=== PATIENT | female | born 1965 | race African-American/Black ===

== ENCOUNTER → 2016-09-15 | Outpatient (CLI) | payer BC ==
--- NOTE | 2016-09-19 07:24 | MM ---
Reason for exam: screening (asymptomatic). Last mammogram was performed 1 year and 2 months ago. History: Family history of breast cancer in maternal cousin and breast cancer in maternal aunt. Took hormonal contraceptives for 10 years beginning at age 21. Physical Findings: A clinical breast exam by your physician is recommended on an annual basis and results should be correlated with mammographic findings. MG Screening Mammo w CAD Bilateral CC and MLO view(s) were taken. Prior study comparison: July 20, 2015, bilateral MG screening mammo w CAD. July 16, 2014, bilateral MG screening mammo w CAD. May 21, 2013, bilateral digital screening mammo w/CAD. There are scattered fibroglandular densities. There is no discrete abnormality. ASSESSMENT: Negative, BI-RAD 1 RECOMMENDATION: Routine screening mammogram of both breasts in 1 year.
== END | disposition home or self-care (01) ==
LOC: RADMAMWWP 09:25
PROVIDERS: ATTEND Obstetrics & Gynecology
DX: Z12.31 Encounter for screening mammogram for malignant neoplasm of breast (principal)

== ENCOUNTER → 2017-10-10 | Outpatient (CLI) | payer BC ==
--- NOTE | 2017-10-12 09:55 | MM ---
Reason for exam: screening (asymptomatic). Last mammogram was performed 1 year and 1 month ago. History: Family history of breast cancer in maternal cousin and breast cancer in maternal aunt. Took hormonal contraceptives for 10 years beginning at age 21. Physical Findings: A clinical breast exam by your physician is recommended on an annual basis and results should be correlated with mammographic findings. MG Screening Mammo w CAD Bilateral CC and MLO view(s) were taken. Prior study comparison: September 15, 2016, bilateral MG screening mammo w CAD. July 20, 2015, bilateral MG screening mammo w CAD. There are scattered fibroglandular densities. No significant changes when compared with prior studies. ASSESSMENT: Benign, BI-RAD 2 RECOMMENDATION: Routine screening mammogram of both breasts in 1 year.
== END | disposition home or self-care (01) ==
LOC: RADMAMWWP 08:45
PROVIDERS: ATTEND Obstetrics & Gynecology
DX: Z12.31 Encounter for screening mammogram for malignant neoplasm of breast (principal)
CPT/HCPCS: 77067

== ENCOUNTER → 2018-04-02 | Outpatient (CLI) | payer BC ==
[2018-04-02 10:50] LABS: Basophils % (A) 1 %; Eosinophils # (A) 0.1 k/uL (0-0.7); Eosinophils % (A) 2 %; HCT 38.2 % (34.0-46.0); HGB 12.3 gm/dL (11.4-16.0); Hypochromasia Slight; Lymphocytes # (A) 1.6 k/uL (1.0-4.8); Lymphocytes % (A) 33 %; MCH 27.9 pg (25.0-35.0); MCHC 32.1 g/dL (31.0-37.0); MCV 86.9 fL (80.0-100.0); Mean Platelet Volume 8.7; Monocytes # (A) 0.3 k/uL (0-1.0); Monocytes % (A) 5 %; Neutrophils # (A) 2.8 k/uL (1.3-7.7); Neutrophils % (A) 57 %; Platelet Count 237 k/uL (150-450); RBC 4.39 m/uL (3.80-5.40); RDW 15.2 % (11.5-15.5)
[2018-04-02 11:11] LABS: Potassium 3.8 mmol/L (3.5-5.1)
== END | disposition home or self-care (01) ==
LOC: LABPAT 09:54
PROVIDERS: ATTEND Obstetrics & Gynecology
DX: Z01.818 Encounter for other preprocedural examination (principal); Z01.812 Encounter for preprocedural laboratory examination; N81.10 Cystocele, unspecified; I10 Essential (primary) hypertension; E11.9 Type 2 diabetes mellitus without complications
CPT/HCPCS: 36415; 80051; 82565; 82947; 84520; 85025; 87086; 93005

== ENCOUNTER 2018-04-09 05:46 | Observation (INO) | payer BC ==
[~2018-04-09 05:46] MED LIST: DEXAMETHASONE SOD PHOSPHATE 10 MG/ML 1 ML VIAL IV ONE; HYDROmorphone 0.5 MG/0.5 ML SYRINGE IVP PRN; LIDOCAINE 1% 20 ML VIAL (10MG/ML) FOR IV START INTRADERMA PRN; ONDANSETRON 4 MG/2 ML VIAL IVP ONE; SCOPOLAMINE 1.5MG/72HR PATCH TRANSDERM ONE
[2018-04-09] MEDS ORDERED: LACTATED RINGERS 1,000 ML IV ONE (06:28)
[2018-04-09 06:35] LABS: Glucose,Whole Blood 143 mg/dL (75-99)
[2018-04-09] MEDS ORDERED: MIDAZOLAM 2 MG/2 ML VIAL IVP ONE (06:57)
[2018-04-09] MEDS ORDERED: ceFAZolin IN SWFI 2 GM/20 ML SYRINGE IVP ONE (07:00)
[2018-04-09] MEDS ORDERED: KETOROLAC 30 MG/ML 1 ML VIAL ONE (07:28)
[2018-04-09] MEDS ORDERED: fentaNYL (PF) 50 MCG/ML 2 ML AMP ONE (07:28)
[2018-04-09] MEDS ORDERED: MIDAZOLAM 2 MG/2 ML VIAL ONE (07:28)
[2018-04-09] MEDS ORDERED: LIDOCAINE 1% INJ 10MG/ML (20 ML MDV) ONE (07:28)
[2018-04-09] MEDS ORDERED: HYDROmorphone (PF) 1 MG/ML ONE (07:28)
[2018-04-09] MEDS ORDERED: PROPOFOL 10 MG/ML 20 ML VIAL IV ONE (07:28)
[2018-04-09] MEDS ORDERED: SUCCINYLCHOLINE CHLORIDE 100 MG/5 ML SYR IV ONE (07:28)
[2018-04-09] MEDS ORDERED: VASOPRESSIN 20 UNIT/ML 1 ML VIAL SQ ONE (07:45)
[2018-04-09] MEDS ORDERED: BACITRACIN 500 UNIT/GM OINT 28.4 GM TUBE TOPICAL ONE (07:57)
[2018-04-09] MEDS ORDERED: diphenhydrAMINE 50 MG/ML 1 ML VIAL IVP PRN (08:41)
[2018-04-09] MEDS ORDERED: ONDANSETRON 4 MG/2 ML VIAL IVP PRN (08:41)
[2018-04-09] MEDS ORDERED: SIMETHICONE 80 MG CHEWABLE PO PRN (08:41)
[2018-04-09] MEDS ORDERED: METOCLOPRAMIDE 5 MG/ML 2 ML VIAL IVP PRN (08:41)
[2018-04-09] MEDS ORDERED: Acetaminophen-Codeine 300-30mg TAB PO PRN ×2 (08:41)
[2018-04-09] MEDS ORDERED: IBUPROFEN 600 MG TAB PO PRN (08:41)
--- NOTE | 2018-04-09 08:52 | P.OP ---
Date of Procedure: 04/09/18 Preoperative Diagnosis: #1. Symptomatic cystocele #2. Symptomatic uterine prolapse Postoperative Diagnosis: Same Procedure(s) Performed: 1. Vaginal hysterectomy #2. Anterior colporrhaphy Anesthesia: JAMES Surgeon: Rajiv Downing Insulation Worker #1: Jania Chen Estimated Blood Loss (ml): 125 IV fluids (ml): 700 Urine output (ml): 300 Pathology: other (Uterus with cervix) Condition: stable Disposition: PACU Operative Findings: Preoperative pelvic examination confirmed adequate uterine descensus under anesthesia to proceed with hysterectomy. There was grade 2+ uterine prolapse and grade 3 cystocele present. The bilateral tubes and ovaries appeared and felt normal. There were a number of small paratubal cysts primarily on the right side which were left in place so as not to cause bleeding. Description of Procedure: The patient was prepped and draped in usual fashion after general endotracheal anesthesia was administered by the anesthesiologist. A weighted speculum was placed and the bladder drained of approximately 200 mL of clear brien urine. The cervix was grasped with a double-tooth tenaculum and the cervical vaginal mucosa infused with diluted vasopressin solution. The cervicovaginal mucosa was incised circumferentially and reflected distally both sharply and bluntly. The posterior peritoneum was identified and incised sharply with the Steel scissors and then tagged with a stitch of 2-0 Vicryl for later use. The short weighted speculum was replaced with a long weighted speculum and further blunt dissection carried out on the mucosa. The uterosacral ligaments on each side were clamped with curved Melody-Almont clamps, cut, and suture-ligated with a transfixion stitch of 0 Vicryl. Serial bites were taken up the cardinal ligament towards the utero-ovarian ligament on each side using curved Melody- Almont clamps. Each was cut and then suture-ligated with a transfixion stitch of 0 Vicryl. After several bites on each side and securing the vasculature laterally, the uterus was inverted posteriorly allowing identification of the anterior peritoneum which was incised sharply. This isolated the utero-ovarian ligament on each side which was clamped with a curved Melody-Almont clamp, cut, and suture-ligated with a transfixion stitch of 0 Vicryl followed by a free tie of 0 Vicryl. Some bleeding on the right ovary was noted and was made hemostatic both with the Bovie and with a [id number]-ar-[id number] stitch of 0 Vicryl. The findings otherwise with the tubes and ovaries were entirely normal. The long weighted speculum was replaced the short weighted speculum and the previously placed stitch of 2-0 Vicryl was used to close the parietal peritoneum in the pursestring stitch. The uterosacral stitches were placed through the contralateral uterosacral and vaginal mucosa with 0 Vicryl and then tied together in a modified Santos's culdoplasty. The intervening open vagina was closed posterior to the uterosacrals with interrupted [id number] stitches of 0 Vicryl. The anterior space was closed with a single stitch and left open at its apex where Allis clamps were affixed to the edges. The vesicovaginal mucosa was then infused with diluted vasopressin solution in the midline from the vaginal incision to the urethral apex. It was then undermined with Metzenbaum scissors in the midline and divided placing Allis clamps along the margins. The mucosa was then bluntly and sharply dissected from the underlying bladder. Once adequate dissection had been carried out, Dhillon catheter was placed demonstrating clear fluid. Approximately 100 mL of clear brien urine was released. Serial Mary plication stitches were placed starting at the urethral apex using 2-0 PDS and continuing to the top of the vaginal closure. The intervening redundant vaginal mucosa was trimmed with Metzenbaum scissors and discarded. The vaginal mucosa was then closed with a running locking stitch of 2-0 Vicryl from the urethral apex to the apex of the vaginal hysterectomy incision. The Dhillon catheter was noted to be free and draining clear brien urine. The vagina was packed with one-inch iodophor gauze covered with bacitracin ointment. All sponge, instrument, and needle counts were correct. There were no complications. Estimated blood loss for the case was approximately 125 mL. The patient tolerated the procedure well and proceeded to the recovery room in stable condition.
[2018-04-09] MEDS: ACETAMINOPHEN IV (For NPO) 1,000 MG in EMPTY BAG 1 BAG IVPB PRN ×2 (09:45→10:00)
[2018-04-09] MEDS: LACTATED RINGERS 1,000 ML IV SCH ×2 (10:59→20:19)
[2018-04-09] MEDS: SENNOSIDES-DOCUSATE SODIUM 1 EACH TAB PO SCH ×2 (10:59→20:48)
[2018-04-09 11:03] VITALS: BMI 34.4
[2018-04-09] MEDS: HYDROmorphone 1 MG/ML 1 ML SYRINGE IVP PRN ×2 (12:49→16:33)
[2018-04-09 14:21] LABS: Glucose,Whole Blood 150 mg/dL (75-99)
[2018-04-09] MEDS: KETOROLAC 30 MG/ML 1 ML VIAL IVP PRN ×2 (14:52→20:48)
[2018-04-09 17:04] LABS: Glucose,Whole Blood 163 mg/dL (75-99)
[2018-04-09] MEDS: INSULIN ASPART (NovoLOG) 100 UNIT/ML VIAL SQ SCH ×2 (17:30→20:46)
[2018-04-09] MEDS: GLIMEPIRIDE 2 MG TAB PO SCH (18:31)
[2018-04-09 20:33] LABS: Glucose,Whole Blood 173 mg/dL (75-99)
[2018-04-09] MEDS: LOSARTAN-HCTZ 50-12.5 MG 1 EACH TAB PO SCH (20:48)
[2018-04-10] MEDS: KETOROLAC 30 MG/ML 1 ML VIAL IVP PRN (04:17)
[2018-04-10] MEDS: LACTATED RINGERS 1,000 ML IV SCH (04:18)
[2018-04-10 06:51] LABS: Glucose,Whole Blood 89 mg/dL (75-99)
[2018-04-10] MEDS: INSULIN ASPART (NovoLOG) 100 UNIT/ML VIAL SQ SCH ×2 (06:52→13:03)
[2018-04-10 07:33] LABS: Basophils % (A) 0 %; Eosinophils % (A) 0 %; HCT 35.2 % (34.0-46.0); HGB 10.9 gm/dL (11.4-16.0); Lymphocytes # (A) 1.7 k/uL (1.0-4.8); Lymphocytes % (A) 16 %; MCH 27.1 pg (25.0-35.0); MCV 87.5 fL (80.0-100.0); Mean Platelet Volume 10.2; Monocytes # (A) 0.7 k/uL (0-1.0); Monocytes % (A) 7 %; Neutrophils # (A) 8.4 k/uL (1.3-7.7); Neutrophils % (A) 76 %; Platelet Count 198 k/uL (150-450); RBC 4.02 m/uL (3.80-5.40); RDW 15.4 % (11.5-15.5)
[2018-04-10] MEDS: GLIMEPIRIDE 2 MG TAB PO SCH (07:57)
[2018-04-10] MEDS ORDERED: ACETAMINOPHEN TAB 325 MG TAB PO PRN (08:43)
--- NOTE | 2018-04-10 08:58 | P.DS ---
Providers Date of admission: 04/09/18 21:18 Expected date of discharge: 04/10/18 Attending physician: Rajiv Downing Primary care physician: Chantel Morgan - Discharge Diagnosis(es) (1) Cystocele Current Visit: Yes Status: Acute (2) Uterine prolapse Current Visit: Yes Status: Acute Hospital Course: Patient is a 52-year-old 4 para 3 who is status post 3 vaginal deliveries in the past who presented the office with complaints of increasing symptoms of prolapse. Examination in the office demonstrated a grade 3 cystocele present with uncertain prolapse of the uterus without anesthetic. She was counseled regarding the likelihood of vaginal instructed me with anterior repair assuming there was adequate uterine descensus. In the operating room, the patient was found to have adequate uterine descensus under anesthesia and underwent a vaginal instructed he with anterior colporrhaphy and an uncomplicated fashion. Her postoperative course has been entirely uncomplicated with vital signs remained stable and her temperature was afebrile throughout. She was tolerating regular diet by the morning of postoperative day #1 and was able to adequately void with minimal post void residual as measured by uroscan. She was deemed stable for discharge on postoperative day # 1 was discharged home to follow-up in the office in 2 weeks for recheck and 6 weeks routinely. Discharge instructions included calling for any significantly increased bleeding, fever, bladder concerns, GI concerns, abdominal pain, fever , or anything else that concerned her. She was additionally instructed to have nothing in the vagina for at least 6 weeks time to include intercourse. She was lastly and most importantly instructed to do no heavy lifting over the course of the next 6 weeks. She understood all of her instructions and agrees follow up as noted above. Discharge medications included continuation of her home medications aside from the iron which she will forgo in order to decrease the risk for constipation. She was provided with a prescription for Tylenol No. 3, 1-2 by mouth every 6 hours when necessary pain, #20 dispensed with no refills. She will use these only as needed and anticipate using over-the- counter analgesic pain medications more regularly. Discharge hemoglobin and hematocrit were 10.9 and 35.2 respectively. Procedures: #1. Vaginal instructed he #2. Anterior colporrhaphy Patient Condition at Discharge: Good Plan - Discharge Summary Discharge Rx Participant: No New Discharge Prescriptions: No Action Glimepiride [Amaryl] 2 mg PO BID Aspirin EC [Ecotrin] 81 mg PO DAILY Losartan-Hctz 50-12.5 mg [Hyzaar 50-12.5] 1 each PO BID sitaGLIPtin [Januvia] 100 mg PO DAILY Ascorbic Acid [Vitamin C] 500 mg PO DAILY Folic Acid 1 mg PO DAILY Gardiance 10 mg PO DAILY Cholecalciferol (Vitamin D3) [Vitamin D3] 2,000 unit PO DAILY Ferrous Sulfate [Iron (65 MG Elemental)] 65 mg PO DAILY Discharge Medication List Aspirin EC [Ecotrin] 81 mg PO DAILY 07/10/14 [History] Glimepiride [Amaryl] 2 mg PO BID 07/10/14 [History] Losartan-Hctz 50-12.5 mg [Hyzaar 50-12.5] 1 each PO BID 12/26/15 [History] sitaGLIPtin [Januvia] 100 mg PO DAILY 12/26/15 [History] Ascorbic Acid [Vitamin C] 500 mg PO DAILY 04/01/18 [History] Cholecalciferol (Vitamin D3) [Vitamin D3] 2,000 unit PO DAILY 04/01/18 [History] Folic Acid 1 mg PO DAILY 04/01/18 [History] Gardiance 10 mg PO DAILY 04/01/18 [History] Ferrous Sulfate [Iron (65 MG Elemental)] 65 mg PO DAILY 04/09/18 [History] Follow up Appointment(s)/Referral(s): Rajiv Downing MD [STAFF PHYSICIAN] - 2 Weeks Discharge Disposition: HOME SELF-CARE
[2018-04-10] MEDS ORDERED: LINAGLIPTIN 5 MG TABLET PO SCH (09:00)
[2018-04-10] MEDS: SENNOSIDES-DOCUSATE SODIUM 1 EACH TAB PO SCH (09:20)
[2018-04-10] MEDS: LOSARTAN-HCTZ 50-12.5 MG 1 EACH TAB PO SCH (09:26)
[2018-04-10 12:17] LABS: Glucose,Whole Blood 95 mg/dL (75-99)
[2018-04-10] MEDS ORDERED: IBUPROFEN 600 MG TAB PO STA (12:51)
[2018-04-10 13:29] LABS: Hemoglobin A1C 6.8 % (4.0-6.0)
[2018-04-10 14:50] VITALS: BP 149/91; PULSE 78; RESP 20; TEMP 98.3
== END 2018-04-10 13:55 | disposition home or self-care (01) ==
LOC: OR 05:46 → 6PED 08:47 → OR 21:17 → 6PED 21:18
PROVIDERS: ADMIT Obstetrics & Gynecology; ATTEND Obstetrics & Gynecology
DX: N81.3 Complete uterovaginal prolapse (principal); I10 Essential (primary) hypertension; Z82.49 Family history of ischemic heart disease and other diseases of the circulatory system; Z83.3 Family history of diabetes mellitus; Z80.3 Family history of malignant neoplasm of breast; Z79.84 Long term (current) use of oral hypoglycemic drugs; Z79.82 Long term (current) use of aspirin; Z79.899 Other long term (current) drug therapy; Z98.51 Tubal ligation status
CPT/HCPCS: 58260; 57240; 81025; 86900; 86901; 85025; 86850; 88307; 83036; G0378 ×2; J2250; J1100; J2765; J2405; J2001; J3010; J1885 ×2; J1170; J0131; J0330; J2704; J0690

== ENCOUNTER → 2018-11-12 | Outpatient (CLI) | payer BC ==
--- NOTE | 2018-11-14 10:21 | MM ---
Reason for exam: screening (asymptomatic). Last mammogram was performed 1 year and 1 month ago. History: Family history of breast cancer in maternal cousin and breast cancer in maternal aunt. Took hormonal contraceptives for 10 years beginning at age 21. Physical Findings: A clinical breast exam by your physician is recommended on an annual basis and results should be correlated with mammographic findings. MG Screening Mammo w CAD Bilateral CC and MLO view(s) were taken. Prior study comparison: October 10, 2017, bilateral MG screening mammo w CAD. September 15, 2016, bilateral MG screening mammo w CAD. There are scattered fibroglandular densities. There is chronic nodularity bilaterally. There is no discrete abnormality. ASSESSMENT: Negative, BI-RAD 1 RECOMMENDATION: Routine screening mammogram of both breasts in 1 year.
== END | disposition home or self-care (01) ==
LOC: RADMAMWWP 07:27
PROVIDERS: ATTEND Internal Medicine
DX: Z12.31 Encounter for screening mammogram for malignant neoplasm of breast (principal)
CPT/HCPCS: 77067

== ENCOUNTER → 2019-12-08 | Outpatient (CLI) | payer BC ==
--- NOTE | 2019-12-15 10:35 | MM ---
Reason for exam: screening (asymptomatic). Last mammogram was performed 1 year and 1 month ago. History: Family history of breast cancer in maternal cousin and breast cancer in maternal aunt. Took hormonal contraceptives for 10 years beginning at age 21. Physical Findings: A clinical breast exam by your physician is recommended on an annual basis and results should be correlated with mammographic findings. MG Screening Mammo w CAD Bilateral CC and MLO view(s) were taken. Prior study comparison: November 12, 2018, bilateral MG screening mammo w CAD. October 10, 2017, bilateral MG screening mammo w CAD. There are scattered fibroglandular densities. No significant changes when compared with prior studies. ASSESSMENT: Negative, BI-RAD 1 RECOMMENDATION: Routine screening mammogram of both breasts in 1 year.
== END | disposition home or self-care (01) ==
LOC: RADMAMWWP 13:56
PROVIDERS: ATTEND Obstetrics & Gynecology
DX: Z12.31 Encounter for screening mammogram for malignant neoplasm of breast (principal)
CPT/HCPCS: 77067

== ENCOUNTER → 2019-12-25 | Outpatient (CLI) | payer BC | END | disposition home or self-care (01) | LOC: LABWHC1 12:43 | PROVIDERS: ATTEND Internal Medicine | DX: Z20.828 Contact with and (suspected) exposure to other viral communicable diseases (principal) | CPT/HCPCS: U0003; C9803 ==

== ENCOUNTER → 2020-01-09 | Outpatient (CLI) | payer BC | END | disposition home or self-care (01) | LOC: LABWHC1 12:17 | PROVIDERS: ATTEND Internal Medicine | DX: Z20.828 Contact with and (suspected) exposure to other viral communicable diseases (principal) | CPT/HCPCS: U0003; C9803 ==

== ENCOUNTER → 2020-12-08 | Outpatient (CLI) | payer BC ==
--- NOTE | 2020-12-09 09:44 | MM ---
Reason for exam: screening (asymptomatic). Last mammogram was performed 1 year ago. History: Family history of breast cancer in maternal cousin and breast cancer in maternal aunt. Took hormonal contraceptives for 10 years beginning at age 21. Physical Findings: A clinical breast exam by your physician is recommended on an annual basis and results should be correlated with mammographic findings. MG Screening Mammo w CAD Bilateral CC and MLO view(s) were taken. Prior study comparison: December 08, 2019, bilateral MG screening mammo w CAD. November 12, 2018, bilateral MG screening mammo w CAD. There are scattered fibroglandular densities. There is no discrete abnormality. No significant changes when compared with prior studies. ASSESSMENT: Negative, BI-RAD 1 RECOMMENDATION: Routine screening mammogram of both breasts in 1 year.
== END | disposition home or self-care (01) ==
LOC: RADMAMWWP 07:59
PROVIDERS: ATTEND Obstetrics & Gynecology
DX: Z12.31 Encounter for screening mammogram for malignant neoplasm of breast (principal); Z80.3 Family history of malignant neoplasm of breast
CPT/HCPCS: 77067

== ENCOUNTER → 2021-08-05 | Outpatient (CLI) | payer BC ==
--- NOTE | 2021-08-05 08:37 | BD ---
EXAMINATION TYPE: Axial Bone Density DATE OF EXAM: 08/05/2021 COMPARISON: THIS IS HER BASELINE DEXA STUDY CLINICAL HISTORY: 55 years year old Female. ICD-10 CODE: M810 AGE RELATED OSTEOPOROSIS Height: 63.7 Weight: 191 FRAX RISK QUESTIONS: Current Tobacco Use: CONTACT WITH SMOKING RISK FACTORS HISTORY OF: Surgery to RT WRIST, REMOVAL OF BONE AND CA DEPOSIT Postmenopausal woman: YES, PARTIAL AT 51 YRS OLD, HORMONAL STEVE NOW Hyperparathyroidism: NO Adrenal Insufficiency: NO MEDICATIONS: Additional Medications: JANUVIA, BP MED, STATIN FOR CHOLESTEROL, VIT D3, MULTIVITAMINS AND C Additional History: DIABETIC, HYPERTENSION, CHOLESTEROL EXAM MEASUREMENTS: Bone mineral densitometry was performed using the [employer] System. Bone mineral density as measured about the Lumbar spine is: ----- L1-L4(G/cm2): 1.406 T Score Values are as follows: ----- L1: 2.0 ----- L2: 1.2 ----- L3: 1.8 ----- L4: 2.2 ----- L1-L4: 1.9 Bone mineral density BASELINE STUDY Bone mineral density about the R hip (g/cm2): 1.030 Bone mineral density about the L hip (g/cm2): 1.028 T Score values are as follows: -----R Neck: 0.3 -----L Neck: 0.4 -----R Total: 0.2 -----L Total: 0.2 Bone mineral density BASELINE STUDY FRAX%s: The graph provided illustrates a 1.9% chance for a major osteoporotic fx and a 0.0% chance fo r the hips probability for fx in 10 years time. IMPRESSION: No evidence for osteoporosis or osteopenia. NOTE: T-SCORE=SD OF THE YOUNG ADULT MEAN.
--- NOTE | 2021-08-05 09:40 | CT ---
EXAMINATION TYPE: CT soft tissue neck w con DATE OF EXAM: 08/05/2021 COMPARISON: None HISTORY: 55-year-old female R22.0, Mass/lump under chin, submandibular region TECHNIQUE: Contiguous axial scanning of the soft tissues of the neck performed with IV Contrast, rahul ent injected with 100 mL of Isovue 300. Coronal/sagittal reconstructions performed. CT DLP: 382.4 mGycm Automated exposure control for dose reduction was used. FINDINGS: There appears to be an empty sella with secondary sellar enlargement. Paranasal sinuses and mastoid a ir cells appear clear. Visualized intracranial structures show no gross abnormality. Nasopharynx is clear. Lobulated soft tissue left vallecular space suggesting lingual tonsillar hypertrophy. Otherwise, orop harynx appears clear. Epiglottis and prevertebral soft tissues are satisfactory. Glottic and subglottic structures as well as the tracheal column and visualized upper lungs are clear . There is a 7 mm hypodense nodule within the right lobe of the thyroid gland of questionable clinical significance. Thyroid ultrasound can further evaluate. The bilateral submandibular and parotid glands appear satisfactory. There is a palpable marker placed in the right submental region where a mildly enlarged 1.2 x 1.0 cm lymph node is noted. Consider 4-6 week follow-up ultrasound to reassess. If persistence or enlargemen t, tissue sampling may be considered. No additional cervical lymphadenopathy is seen. Bones: No osseous destructive process. IMPRESSION: PALPABLE MARKER RIGHT SUBMENTAL REGION WITH AN UNDERLYING MILDLY ENLARGED 1.2 X 1.0 CM LYMPH NODE. TH IS MAY BE REACTIVE/POST INFLAMMATORY. CONSIDER A 4-6 WEEK FOLLOW-UP ULTRASOUND TO REASSESS. IF PERSIS TENCE OR ENLARGEMENT OR SUSPICIOUS ULTRASOUND/CLINICAL FEATURES, TISSUE SAMPLING CAN BE CONSIDERED AT THAT TIME.
== END | disposition home or self-care (01) ==
LOC: RADBDWWP 07:09
PROVIDERS: ATTEND Internal Medicine
DX: R59.0 Localized enlarged lymph nodes (principal); Z78.0 Asymptomatic menopausal state
CPT/HCPCS: 77080; 70491; Q9967

== ENCOUNTER 2021-09-14 06:18 | Day surgery (SDC) | payer BC ==
[2021-09-13 12:19] VITALS: BMI 32.5
[~2021-09-14 06:18] MED LIST changes: -DEXAMETHASONE SOD PHOSPHATE 10 MG/ML 1 ML VIAL IV ONE; -HYDROmorphone 0.5 MG/0.5 ML SYRINGE IVP PRN; +LACTATED RINGERS 1,000 ML IV SCH; +LIDOCAINE 1% (10MG/ML) FOR IV START INTRADERMA PRN; -LIDOCAINE 1% 20 ML VIAL (10MG/ML) FOR IV START INTRADERMA PRN; -ONDANSETRON 4 MG/2 ML VIAL IVP ONE; -SCOPOLAMINE 1.5MG/72HR PATCH TRANSDERM ONE
[2021-09-14 06:56] VITALS: RESP 16; TEMP 97.8
[2021-09-14 07:07] LABS: Glucose,Whole Blood 199 mg/dL (70-110)
[2021-09-14] MEDS ORDERED: LACTATED RINGERS 1,000 ML IV ONE (07:09)
[2021-09-14] MEDS ORDERED: LIDOCAINE 2% INJ 20 MG/ML (2 ML VIAL) ONE (07:27)
[2021-09-14] MEDS ORDERED: PROPOFOL 10 MG/ML 20 ML VIAL IV ONE (07:27)
--- NOTE | 2021-09-14 07:46 | P.PCN ---
Date of Procedure: 09/14/21 Procedure(s) Performed: Brief history: Patient is a pleasant 55-year-old female scheduled for an elective upper endoscopy as well as colonoscopy as a part of evaluation of Iron deficiency anemia and prior history of colon polyps Procedure performed: Esophagogastroduodenoscopy with biopsy. Colonoscopy with biopsy Preoperative diagnosis: Iron deficiency anemia History of colon polyps Anesthesia: MAC Procedure: After informed consent was obtained from the patient was brought into the endoscopy unit and IV sedation was administered by anesthesia under continuous monitoring. Initially upper endoscopy was done. The Olympus GF 160 video endoscope was inserted inserted into the mouth and esophagus intubated without any difficulty and was gradually advanced into the stomach and duodenum and carefully examined. The bulb and second part of the duodenum appeared normal. Biopsies were done from the duodenum to rule out celiac disease. The scope was then withdrawn into the stomach adequately insufflated with air and upon careful examination the antrum had minimal antral gastritis and biopsies were done from this area. The body, cardia and fundus appeared normal. The scope was then withdrawn into the esophagus. The GE junction was located at 40 cm to the incisors. It appeared regular with no erythema erosions or ulcerations. Rest of the esophagus appeared normal. Patient tolerated the procedure well. At this time the patient continued to remain sedation. Initial digital rectal examination was normal. Olympus CF 160 video colonoscope was then inserted into the rectum and gradually advanced to the cecum without any difficulty. Careful examination was performed as the scope was gradually being withdrawn. The prep was excellent. The cecum, ascending colon, appeared normal. In the transverse colon there was a 3 mm sessile polyp that was removed by cold biopsy. Rest of the transverse colon, descending colon, sigmoid colon and rectum appeared normal. Retroflexion was performed in the rectum and no lesions were noted. Patient tolerated the procedure well. Impression: 1. Upper endoscopy revealed a small hiatal hernia and mild antral gastritis. 2. Colonoscopy revealed a 3-4 mm transverse colon polyp status post biopsy. Rest of the colon appeared normal. Recommendations: Findings of this examination were discussed with the patient as well as her family. Was advised to follow with the biopsy results. If the biopsy results adenoma she can have a repeat colonoscopy in 5 years.
[2021-09-14 08:06] VITALS: BP 124/80; PULSE 87
== END 2021-09-14 08:35 | disposition home or self-care (01) ==
LOC: ORWHC2ENDO 06:18
PROVIDERS: ATTEND Internal Medicine Gastroenterology
DX: Z12.11 Encounter for screening for malignant neoplasm of colon (principal); D12.3 Benign neoplasm of transverse colon; K29.70 Gastritis, unspecified, without bleeding; K44.9 Diaphragmatic hernia without obstruction or gangrene; Z86.010 Personal history of colon polyps; D50.0 Iron deficiency anemia secondary to blood loss (chronic); I10 Essential (primary) hypertension; E11.9 Type 2 diabetes mellitus without complications; Z79.84 Long term (current) use of oral hypoglycemic drugs; Z79.899 Other long term (current) drug therapy; Z79.82 Long term (current) use of aspirin
CPT/HCPCS: 88305; 45380; 43239; J2704; J2001

== ENCOUNTER → 2021-11-11 | Outpatient (CLI) | payer BC ==
--- NOTE | 2021-11-11 11:45 | US ---
EXAMINATION TYPE: US thyroid st tissue head/neck DATE OF EXAM: 11/11/2021 COMPARISON: CT neck 08/05/2021. CLINICAL HISTORY: D36.0 BENIGN NEOPLASM OF LYMPH NODES. Palpable mass midline neck GLAND SIZE: Right Lobe: 5.0 x 1.6 x 1.6 cm Overall Parenchyma: homogenous Left Lobe: 3.5 x 0.8 x 1.9 cm Overall Parenchyma: homogeneous Isthmus Thickness: 0.3 cm NODULES RIGHT: # of nodules measured on right: 1 1. 1.1 X 0.80 x 0.81 cm, upper mid, cystic or almost completely cystic, anechoic nodule, which is t aller than wide, with smooth margins, with echogenic foci. Comet tail artifact. This is most consiste nt with a colloid cyst. LEFT: # of nodules measured on left: 0 ISTHMUS: # of nodules measured in the isthmus: 0 Bilateral neck scanned. In the area of palpable mass, a lymph node is visualized in the midline subme ntal area and measures 1.3 x 0.68 x 1.0 cm. This demonstrates central fatty hilum. In the right neck mid, lateral to the thyroid, an enlarged hypoechoic lymph node with noticeably decreased hilum is vis ualized measuring 2.6 x 0.78 x 0.99cm IMPRESSION: Enlarged submental lymph node and right neck lymph node. This may be reactive/post inflammatory versu s other etiologies. Consider tissue sampling as clinically indicated.
== END | disposition home or self-care (01) ==
LOC: RADUSWWP 09:48
PROVIDERS: ATTEND Internal Medicine
DX: D36.0 Benign neoplasm of lymph nodes (principal)
CPT/HCPCS: 76536

== ENCOUNTER → 2021-12-09 | Outpatient (CLI) | payer BC ==
--- NOTE | 2021-12-12 08:02 | MM ---
Reason for Exam: Screening (asymptomatic). Last screening mammogram was performed 12 month(s) ago. Patient History: Menarche at age 15. First Full-Term at age 20. Hysterectomy at age 52. Postmenopausal. Hormonal Contraceptives for 10 years from age 21 until age 31. Maternal cousin had breast cancer. Maternal aunt had breast cancer. Risk Values: Esther 5 year model risk: 0.8%. NCI Lifetime model risk: 6.1%. Prior Study Comparison: 11/12/2018 Bilateral Screening Mammogram, [facility]. 12/08/2019 Bilateral Screening Mammogram, [facility]. 12/08/2020 Bilateral Screening Mammogram, [facility]. Tissue Density: The breast tissue is almost entirely fat. Findings: Analyzed By CAD. There is no suspicious group of microcalcifications or new suspicious mass in either breast. Overall Assessment: Negative, BI-RAD 1 Management: Screening Mammogram of both breasts in 1 year. A clinical breast exam by your physician is recommended on an annual basis and results should be correlated with mammographic findings. [facility] will attempt to contact patient to return for supplemental views and ultrasound if indicated. Electronically signed and approved by: Max Keane DO
== END | disposition home or self-care (01) ==
LOC: RADMAMWWP 07:12
PROVIDERS: ATTEND Obstetrics & Gynecology
DX: Z12.31 Encounter for screening mammogram for malignant neoplasm of breast (principal); Z80.3 Family history of malignant neoplasm of breast
CPT/HCPCS: 77067

== ENCOUNTER → 2022-12-11 | Outpatient (CLI) | payer BC ==
--- NOTE | 2022-12-11 10:27 | MM ---
Reason for Exam: Screening (asymptomatic). Last screening mammogram was performed 12 month(s) ago. Patient History: Menarche at age 15. First Full-Term at age 20. Hysterectomy at age 52. Postmenopausal. Hormonal Contraceptives for 10 years from age 21 until age 31. Maternal cousin had breast cancer. Maternal aunt had breast cancer. Risk Values: Esther 5 year model risk: 1.4%. NCI Lifetime model risk: 7.8%. Prior Study Comparison: 07/20/2015 Bilateral Screening Mammogram, [facility]. 09/15/2016 Bilateral Screening Mammogram, [facility]. 10/10/2017 Bilateral Screening Mammogram, [facility]. 11/12/2018 Bilateral Screening Mammogram, [facility]. 12/08/2019 Bilateral Screening Mammogram, [facility]. 12/08/2020 Bilateral Screening Mammogram, [facility]. 12/09/2021 Bilateral MG screening mammo w CAD, [facility]. Tissue Density: There are scattered fibroglandular densities. Findings: Analyzed By CAD. There is no suspicious group of microcalcifications or new suspicious mass. Benign-appearing calcifications left breast. Overall Assessment: Benign, BI-RAD 2 Management: Screening Mammogram of both breasts in [address] [facility] will attempt to contact patient to return for supplemental views and ultrasound if indicated. Patient should continue monthly self-breast exams. A clinical breast exam by your physician is recommended on an annual basis. This exam should not preclude additional follow-up of suspicious palpable abnormalities. Note on Esther scores and lifetime risk: 1. A Esther score greater than 3% is considered moderate risk. If this is the case, consider specialist referral to assess eligibility for a risk reducing agent. 2. If overall lifetime risk for the development of breast cancer is 20% or higher, the patient may qualify for future screening with alternating mammogram and breast MRI. Electronically signed and approved by: Max Keane DO
== END | disposition home or self-care (01) ==
LOC: RADMAMWWP 08:07
PROVIDERS: ATTEND Internal Medicine
DX: Z12.31 Encounter for screening mammogram for malignant neoplasm of breast (principal); Z78.0 Asymptomatic menopausal state; Z80.3 Family history of malignant neoplasm of breast
CPT/HCPCS: 77067

== ENCOUNTER → 2023-01-22 | Outpatient (CLI) | payer BC ==
--- NOTE | 2023-01-22 21:39 | MR ---
EXAMINATION TYPE: MR foot LT wo con DATE OF EXAM: 01/22/2023 COMPARISON: Left foot radiograph 10/27/2022 HISTORY: Left foot pain from arch to heel for 5 months TECHNIQUE: Multiplanar, multisequence images of the left foot were acquired without contrast. FINDINGS: BONES/CARTILAGE/JOINT: Bone marrow signal is normal. Articular cartilage is normal. No joint effusion. LIGAMENTS: Spring ligament is normal. Lisfranc ligament normal. Normal plantar plates. TENDONS: Flexor tendons are normal. Extensor tendons are normal. SOFT TISSUES: No bursal distention. No intermetatarsal bursa or soft tissue mass. Sinus tarsi is normal. Proximal plantar fascia is thickened to 5 mm, demonstrates partial-thickness tearing and increased in trasubstance signal. Tiny amount of edema within the adjacent plantar calcaneal spurring. Neurovascular structures are normal. Circumferential subcutaneous edema at the level of the ankle. IMPRESSION: 1. Proximal plantar fascia partial-thickness tearing and fasciitis. Reactive edema within the adjacen t plantar calcaneal spur.
== END | disposition home or self-care (01) ==
LOC: RADMRIMAIN 20:15
PROVIDERS: ATTEND Internal Medicine
DX: M77.32 Calcaneal spur, left foot (principal); M79.672 Pain in left foot; M72.9 Fibroblastic disorder, unspecified

== ENCOUNTER → 2023-12-13 | Outpatient (CLI) | payer BC ==
--- NOTE | 2023-12-14 19:58 | MM ---
Reason for Exam: Screening (asymptomatic). Last screening mammogram was performed 12 month(s) ago. Patient History: Menarche at age 15. First Full-Term at age 20. Hysterectomy at age 52. Postmenopausal. Hormonal Contraceptives for 10 years from age 21 until age 31. Maternal cousin had breast cancer. Maternal aunt had breast cancer. Risk Values: Esther 5 year model risk: 1.4%. NCI Lifetime model risk: 7.7%. Prior Study Comparison: 09/15/2016 Bilateral Screening Mammogram, [facility]. 10/10/2017 Bilateral Screening Mammogram, [facility]. 11/12/2018 Bilateral Screening Mammogram, [facility]. 12/08/2019 Bilateral Screening Mammogram, [facility]. 12/08/2020 Bilateral Screening Mammogram, [facility]. 12/09/2021 Bilateral MG screening mammo w CAD, [facility]. 12/11/2022 Bilateral MG screening mammo w CAD, [facility]. Tissue Density: There are scattered areas of fibroglandular density. Findings: Analyzed By CAD. There is no suspicious group of microcalcifications or new suspicious mass in either breast. Overall Assessment: Negative, BI-RAD 1 Management: Screening Mammogram of both breasts in 1 year. . Patient should continue monthly self-breast exams. A clinical breast exam by your physician is recommended on an annual basis. This exam should not preclude additional follow-up of suspicious palpable abnormalities. Note on Esther scores and lifetime risk: 1. A Esther score greater than 3% is considered moderate risk. If this is the case, consider specialist referral to assess eligibility for a risk reducing agent. 2. If overall lifetime risk for the development of breast cancer is 20% or higher, the patient may qualify for future screening with alternating mammogram and breast MRI. [facility], , 12/14/2023 7:54 PM. Electronically signed and approved by: Rupesh Desouza M.D. Radiologist
== END | disposition home or self-care (01) ==
LOC: RADMAMWWP 08:14
PROVIDERS: ATTEND Obstetrics & Gynecology
CPT/HCPCS: 77067